=== PATIENT | male | born 1970 | race Caucasian/White ===

== ENCOUNTER 2018-01-15 14:45 | Observation (INO) ==
[2018-01-15] MEDS ORDERED: Isovue-370 500 ML INFUS..BTL IV ONE ×2 (15:09→15:11)
[2018-01-15] MEDS ORDERED: Ondansetron 4 MG/2 ML VIAL IVP ONE (15:12)
[2018-01-15] MEDS ORDERED: *HR* HYDROmorphone (PF) 1 MG/ML SYRINGE IVP ONE (15:12)
[2018-01-15] MEDS ORDERED: Tdap (Boostrix) Vaccine 0.5 ML SYRINGE IM ONE (15:16)
--- NOTE | 2018-01-15 15:21 | Emergency Department Note ---
Disposition Clinical Impression: Syncope and collapse, Laceration Disposition: Admitted As Inpatient Condition: Good Reasons to Return/Additional Instructions: Sutures will need to be removed in approximately 4-5 days. Referrals: NONE,PCP [Primary Care Provider] - Forms: ED Satisfaction Letter Fall HPI - General Chief Complaint: ED Fall Stated Complaint: syncope, abd pain, fall Time Seen by Provider: 01/15/18 14:49 Source: patient, EMS Mode of arrival: ambulatory Limitations: no limitations Nursing Notes Reviewed: Yes Vital Signs Reviewed: Yes - History of Present Illness HPI Narrative: Patient presents as a syncope from EMS. Patient found in the barn. Unknown and unwitnessed fall and syncope. Unknown down time. Patient has no medical problems and does not take medications. Patient had repetitive words upon EMSs initial arrival. Patient is awake alert and oriented to person and place but not time. Patient does not know what year it is. Patient has pain in the right arm as well as the right leg. Pain with any sort of movement. Pain to palpation of the shoulder elbow wrist and hyperthenar eminence. The patient's hip pain is worse with active and passive range of motion. No specific tenderness. Patient has abdominal pain to the right side of the abdomen. Patient does not remember any prior events. Patient will undergo a trauma evaluation as well as evaluation for syncope. - Related Data Home Medications Medication Instructions Recorded Confirmed No Known Home Drugs 01/15/18 01/15/18 Allergies Allergy/AdvReac Type Severity Reaction Status Date / Time No Known Allergies Allergy Verified 01/15/18 17:37 Review of Systems: Review of systems positive for syncope, laceration to the head, right arm and leg pain.. Right abdominal pain. Confusion. Negative for: Nausea, vomiting, diarrhea, chest pain and shortness of breath All systems ED: reviewed and negative except as stated. Review of Systems: As Per HPI Fall PMH - Past Medical History Medical history: Reports: no medical history Psychiatric history: Reports: no psych history - Social History Smoking Status: Never smoker Alcohol use: Reports: none Drug use: Reports: none Physical Exam Trauma assessment: GCS: 15; [id number]; moves all 4 extremities C-collar placed in the department Patient answering questions without respiratory difficulty; Breath sounds bilaterally with equal and symmetric chest rise. No obvious chest deformities or crepitus No obvious abdominal trauma. Abdomen is soft mild tenderness to palpation of the right. Pelvis is stable. No blood at the meatus, no scrotal hematoma and is rectal bleeding. No obvious trauma to the anterior lower extremities. Skin is warm and perfused. Radial pulses +2 equal bilaterally. EKG: No STEMI Secondary exam: Eyes: anicteric sclerae, moist conjunctivae; PERRL HENT: Atraumatic; oropharynx clear with moist mucous membranes and no mucosal ulcerations Neck: Normal inspection; Trachea midline; FROM, supple Lungs: CTA, with normal respiratory effort and no intercostal retractions CV: RRR, no MRGs Abdomen: Soft, mild tenderness to the right side without significant guarding or rebound. Extremities: Pain to the right shoulder elbow wrist and hyperthenar eminence on the right. Patient with right hip and knee pain. Skin: Multiple old abrasions to the lower legs. Patient has a 2 cm laceration to the top of his head. Bleeding controlled. Normal temperature; no rash, ulcers or lesions Neuro: alert and oriented to person, place but not time. Patient's cranial nerves are intact. Pupils are equal and reactive. The patient cannot move the right arm and leg secondary to pain. - General Limitations: no limitations General appearance: alert Course - Reevaluation(s) Reevaluation #1: CT was called and notified of trauma evaluation. No need for laboratory tests. Patient needs a stat head CT. 1515 Reevaluation #2: Patient underwent trauma evaluation with head, C/T/L-spine, chest abdominal and pelvis CT scan which show a age indeterminate likely chronic T5 fracture. X- rays are negative for acute injury of the extremities. The patient has been reevaluated with family at bedside. His total down time was proximally 20 minutes. Nobody saw the actual episode. The patient is at baseline per family. He did undergo a traumatic accident previously. 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 Patient's mental status is now at baseline. Patient will be admitted for further evaluation of syncope. - Consultations Consultation #1: Discussed with hospitalist. Patient accepted for admission. Vital Signs Temperature 98.3 F 01/15/18 14:48 Pulse Rate 91 01/15/18 14:48 Respiratory Rate 18 01/15/18 14:48 Blood Pressure 140/91 01/15/18 14:48 O2 Sat by Pulse Oximetry 99 01/15/18 14:48 Temperature 98.3 F 01/15/18 14:48 Pulse Rate 75 01/15/18 17:45 Respiratory Rate 16 01/15/18 17:45 Blood Pressure 115/70 01/15/18 17:45 O2 Sat by Pulse Oximetry 98 01/15/18 17:45 Oxygen Delivery Oxygen Delivery Room Air Procedures - Laceration Laceration 1 Site: scalp Size (cm): 2.5 Description: linear Depth: simple, single layer Local Anesthetic: lidocaine 1% Pre-repair: wound explored, irrigated extensively, deep structures intact Skin layer closed with: nylon Size: 5-0 Number of sutures/saman: 3 Technique: simple, interrupted Fall - Medical Records Medical records reviewed: Yes I reviewed the patient's medical records. - Lab Data Lab results reviewed: Yes I reviewed the patient's lab results. Result diagrams: 01/15/18 15:07 01/15/18 15:07 Lab Results 01/15/18 01/15/18 01/15/18 Range/Units 15:07 15:07 15:17 WBC 9.5 (4.3-11.1) K/mcL RBC 4.38 (4.19-5.50) M/mcL Hgb 12.6 L (12.9-16.9) g/dL Hct 37.0 L (37.5-50.1) % MCV 84.5 (83.0-100.0) fL MCH 28.8 (28.0-33.3) pg MCHC 34.1 (31.6-35.5) g/dL RDW 13.7 (11.5-14.5) % Plt Count 290 (140-400) K/mcL MPV 9.0 L (9.4-12.4) fL Immature Gran % 1.1 (0-4) % Seg Neutrophils % 83.8 % Lymphocytes % 7.0 % Monocytes % 6.7 % Eosinophils % 1.1 % Basophils % 0.3 % Neutrophils # 8.0 (1.6-8.9) K/mcL Lymphocytes # 0.7 (0.6-4.6) K/mcL Monocytes # 0.6 (0.0-1.3) K/mcL Eosinophils # 0.1 (0.0-0.6) K/mcL Basophils # 0.0 (0.0-0.2) K/mcL Sodium 137 (136-145) mEq/L Potassium 4.0 (3.5-5.1) mEq/L Chloride 108 H (98-107) mEq/L Carbon Dioxide 22 L (23-29) mEq/L BUN 22 H (6-20) mg/dL Creatinine 0.85 (0.70-1.30) mg/dL Est GFR ( Amer) > 60 (> 60) Est GFR (Non-Af Amer) > 60 (> 60) BUN/Creatinine Ratio 26 (6-26) Glucose 103 (70-105) mg/dL Calculated Osmolality 288 (280-300) Calcium 8.8 (8.6-10.3) mg/dL Creatine Kinase (30-223) Units/L Troponin I < 0.03 (< 0.04) ng/mL Urine Color (Yellow) Urine Clarity (Clear) Urine pH (5.0-8.0) pH Units Ur Specific [place] (1.010-1.025) Urine Protein (Neg-Trace) mg/dL Urine Glucose (UA) (Normal) mg/dL Urine Ketones (Negative) mg/dL Urine Blood (Negative) Urine Nitrite (Negative) Urine Bilirubin (Negative) Urine Urobilinogen (Normal) mg/dL Ur Leukocyte Esterase (Negative) Urine Microscopic RBC (0-3) per hpf Urine Microscopic WBC (0-3) per hpf Ur Squamous Epith Cells (None-Few) per lpf Urine Bacteria (None-Few) per hpf Hyaline Casts (None-Few) per lpf Urine Sperm Urine Opiates Screen (Jtowcy=467) ng/mL Ur Barbiturates Screen (Rmfnqf=097) ng/mL Ur Phencyclidine Scrn (Cutoff=25) ng/mL Ur Amphetamines Screen (Lrytog=8515) ng/mL U Benzodiazepines Scrn (Ylwdgk=825) ng/mL Urine Cocaine Screen (Cutoff= 300) ng/mL U Marijuana (THC) Screen (Cutoff = 50) ng/mL Ethyl Alcohol < 10 (Less than 10) mg/dL Blood Type Antibody Screen 01/15/18 01/15/18 01/15/18 Range/Units 15:18 15:28 15:47 WBC (4.3-11.1) K/mcL RBC (4.19-5.50) M/mcL Hgb (12.9-16.9) g/dL Hct (37.5-50.1) % MCV (83.0-100.0) fL MCH (28.0-33.3) pg MCHC (31.6-35.5) g/dL RDW (11.5-14.5) % Plt Count (140-400) K/mcL MPV (9.4-12.4) fL Immature Gran % (0-4) % Seg Neutrophils % % Lymphocytes % % Monocytes % % Eosinophils % % Basophils % % Neutrophils # (1.6-8.9) K/mcL Lymphocytes # (0.6-4.6) K/mcL Monocytes # (0.0-1.3) K/mcL Eosinophils # (0.0-0.6) K/mcL Basophils # (0.0-0.2) K/mcL Sodium (136-145) mEq/L Potassium (3.5-5.1) mEq/L Chloride (98-107) mEq/L Carbon Dioxide (23-29) mEq/L BUN (6-20) mg/dL Creatinine (0.70-1.30) mg/dL Est GFR ( Amer) (> 60) Est GFR (Non-Af Amer) (> 60) BUN/Creatinine Ratio (6-26) Glucose (70-105) mg/dL Calculated Osmolality (280-300) Calcium (8.6-10.3) mg/dL Creatine Kinase 67 (30-223) Units/L Troponin I (< 0.04) ng/mL Urine Color Yellow (Yellow) Urine Clarity Cloudy A (Clear) Urine pH 5.5 (5.0-8.0) pH Units Ur Specific [place] 1.029 H (1.010-1.025) Urine Protein 100 H (Neg-Trace) mg/dL Urine Glucose (UA) Normal (Normal) mg/dL Urine Ketones Negative (Negative) mg/dL Urine Blood Trace H (Negative) Urine Nitrite Negative (Negative) Urine Bilirubin Negative (Negative) Urine Urobilinogen Normal (Normal) mg/dL Ur Leukocyte Esterase Negative (Negative) Urine Microscopic RBC 0-3 (0-3) per hpf Urine Microscopic WBC 5-15 H (0-3) per hpf Ur Squamous Epith Cells Many H (None-Few) per lpf Urine Bacteria None Seen (None-Few) per hpf Hyaline Casts None Seen (None-Few) per lpf Urine Sperm Present Urine Opiates Screen (Jqwday=413) ng/mL Ur Barbiturates Screen (Igrlng=686) ng/mL Ur Phencyclidine Scrn (Cutoff=25) ng/mL Ur Amphetamines Screen (Ayvuje=3608) ng/mL U Benzodiazepines Scrn (Dvqpwu=194) ng/mL Urine Cocaine Screen (Cutoff= 300) ng/mL U Marijuana (THC) Screen (Cutoff = 50) ng/mL Ethyl Alcohol (Less than 10) mg/dL Blood Type O POSITIVE Antibody Screen NEGATIVE 01/15/18 Range/Units 15:47 WBC (4.3-11.1) K/mcL RBC (4.19-5.50) M/mcL Hgb (12.9-16.9) g/dL Hct (37.5-50.1) % MCV (83.0-100.0) fL MCH (28.0-33.3) pg MCHC (31.6-35.5) g/dL RDW (11.5-14.5) % Plt Count (140-400) K/mcL MPV (9.4-12.4) fL Immature Gran % (0-4) % Seg Neutrophils % % Lymphocytes % % Monocytes % % Eosinophils % % Basophils % % Neutrophils # (1.6-8.9) K/mcL Lymphocytes # (0.6-4.6) K/mcL Monocytes # (0.0-1.3) K/mcL Eosinophils # (0.0-0.6) K/mcL Basophils # (0.0-0.2) K/mcL Sodium (136-145) mEq/L Potassium (3.5-5.1) mEq/L Chloride (98-107) mEq/L Carbon Dioxide (23-29) mEq/L BUN (6-20) mg/dL Creatinine (0.70-1.30) mg/dL Est GFR ( Amer) (> 60) Est GFR (Non-Af Amer) (> 60) BUN/Creatinine Ratio (6-26) Glucose (70-105) mg/dL Calculated Osmolality (280-300) Calcium (8.6-10.3) mg/dL Creatine Kinase (30-223) Units/L Troponin I (< 0.04) ng/mL Urine Color (Yellow) Urine Clarity (Clear) Urine pH (5.0-8.0) pH Units Ur Specific [place] (1.010-1.025) Urine Protein (Neg-Trace) mg/dL Urine Glucose (UA) (Normal) mg/dL Urine Ketones (Negative) mg/dL Urine Blood (Negative) Urine Nitrite (Negative) Urine Bilirubin (Negative) Urine Urobilinogen (Normal) mg/dL Ur Leukocyte Esterase (Negative) Urine Microscopic RBC (0-3) per hpf Urine Microscopic WBC (0-3) per hpf Ur Squamous Epith Cells (None-Few) per lpf Urine Bacteria (None-Few) per hpf Hyaline Casts (None-Few) per lpf Urine Sperm Urine Opiates Screen Negative (Nstuhp=845) ng/mL Ur Barbiturates Screen Negative (Imhzgn=998) ng/mL Ur Phencyclidine Scrn Negative (Cutoff=25) ng/mL Ur Amphetamines Screen Negative (Zbzivq=3524) ng/mL U Benzodiazepines Scrn Negative (Vehvap=130) ng/mL Urine Cocaine Screen Negative (Cutoff= 300) ng/mL U Marijuana (THC) Screen Negative (Cutoff = 50) ng/mL Ethyl Alcohol (Less than 10) mg/dL Blood Type Antibody Screen - Radiology Data Radiology results reviewed: Yes I reviewed the patient's radiology results. - EKG Data EKG attestation: Yes I reviewed and interpreted this EKG. EKG results narrative: EKG shows sinus rhythm with ventricular rate of 89. VA interval 196. QTC 409. Patient has no significant elevations or depressions. No previous EKG for comparison.
[2018-01-15 16:01] LABS: Basophils % 0.3 %; Eosinophils # 0.1 K/mcL (0.0-0.6); Eosinophils % 1.1 %; Hemoglobin 12.6 g/dL (12.9-16.9); Immature Granulocytes % 1.1 % (0-4); Lymphocytes # 0.7 K/mcL (0.6-4.6); Mean Corpuscular HGB Conc 34.1 g/dL (31.6-35.5); Mean Corpuscular Hemoglobin 28.8 pg (28.0-33.3); Mean Corpuscular Volume 84.5 fL (83.0-100.0); Monocytes # 0.6 K/mcL (0.0-1.3); Monocytes % 6.7 %; Platelet Count 290 K/mcL (140-400); Red Blood Count 4.38 M/mcL (4.19-5.50); Red Cell Distribution Width 13.7 % (11.5-14.5); Segmented Neutrophils % 83.8 %
[2018-01-15 16:06] LABS: Bilirubin,Urine Negative (Negative); Blood,Urine Trace (Negative); Clarity,Urine Cloudy (Clear); Color,Urine Yellow (Yellow); Glucose,Urine (UA) Normal (Normal); Ketones,Urine Negative (Negative); Leukocyte Esterase,Urine Negative (Negative); Nitrite,Urine Negative (Negative); PH,Urine 5.5 pH Units (5.0-8.0); Protein,Urine 100 mg/dL (Neg-Trace); Specific Gravity,Urine 1.029 (1.010-1.025); Urobilinogen,Urine Normal (Normal)
[2018-01-15 16:07] LABS: Bacteria,Urine None Seen per hpf (None-Few); Hyaline Casts,Urine None Seen per lpf (None-Few); RBC,Urine 0-3 per hpf (0-3); Squamous Epithelial Cell,Urine Many per lpf (None-Few)
[2018-01-15 16:20] LABS: Sperm,Urine Present
[2018-01-15 16:21] LABS: BUN/Creatinine Ratio 26 (6-26); Blood Urea Nitrogen 22 mg/dL (6-20); Calcium 8.8 mg/dL (8.6-10.3); Carbon Dioxide 22 mEq/L (23-29); Chloride 108 mEq/L (98-107); Ethanol < 10 mg/dL (Less than 10); Glucose 103 mg/dL (70-105); Osmolality,Calculated 288 (280-300); Sodium 137 mEq/L (136-145); eGFR For African Americans > 60 (> 60); eGFR For Non-African Americans > 60 (> 60)
[2018-01-15 16:31] LABS: Amphetamine Screen,Urine Negative ng/mL (Cutoff=1000); Barbiturate Screen,Urine Negative ng/mL (Cutoff=200); Benzodiazepines Screen,Urine Negative ng/mL (Cutoff=200); Cannabinoid Screen,Urine Negative ng/mL (Cutoff = 50); Cocaine Screen,Urine Negative ng/mL (Cutoff= 300); Opiate Screen,Urine Negative ng/mL (Cutoff=300); Phencyclidine Screen,Urine Negative ng/mL (Cutoff=25)
[2018-01-15] MEDS ORDERED: Lidocaine/EPI 1:100k 1% 20 ML VIAL INFILT ONE (17:46)
[2018-01-15] MEDS ORDERED: Lidocaine 1% 20 ML MDV INFILT ONE (17:51)
--- NOTE | 2018-01-15 18:51 | Emergency Department Note ---
Disposition Clinical Impression: Syncope and collapse, Laceration Disposition: Admitted As Inpatient Condition: Fair Reasons to Return/Additional Instructions: Sutures will need to be removed in approximately 4-5 days. Referrals: NONE,PCP [Primary Care Provider] - Forms: ED Satisfaction Letter General Adult HPI - General Chief complaint: ED Fall Stated complaint: syncope, abd pain, fall Time Seen by Provider: 01/15/18 14:49 Source: patient, EMS Mode of arrival: ambulatory Limitations: no limitations Nursing Notes Reviewed: Yes Vital Signs Reviewed: Yes - History of Present Illness Pain Scale: 5 - Related Data Home Medications Medication Instructions Recorded Confirmed No Known Home Drugs 01/15/18 01/15/18 Allergies Allergy/AdvReac Type Severity Reaction Status Date / Time No Known Allergies Allergy Verified 01/15/18 17:37 Past Medical History - Past Medical History Medical history: Reports: no medical history Psychiatric history: Reports: no psych history - Social History Smoking Status: Never smoker Smokeless Tobacco Status: Yes Alcohol use: Reports: none Drug use: Reports: none Physical Exam - General Limitations: no limitations General appearance: alert Course Vital Signs Temperature 98.3 F 01/15/18 14:48 Pulse Rate 91 01/15/18 14:48 Respiratory Rate 18 01/15/18 14:48 Blood Pressure 140/91 01/15/18 14:48 O2 Sat by Pulse Oximetry 99 01/15/18 14:48 Temperature 98.3 F 01/15/18 14:48 Pulse Rate 75 01/15/18 17:45 Respiratory Rate 16 01/15/18 17:45 Blood Pressure 115/70 01/15/18 17:45 O2 Sat by Pulse Oximetry 98 01/15/18 17:45 Oxygen Delivery Oxygen Delivery Room Air Medical Decision Making - Lab Data Result diagrams: 01/15/18 15:07 01/15/18 15:07 Lab Results 01/15/18 01/15/18 01/15/18 Range/Units 15:07 15:07 15:17 WBC 9.5 (4.3-11.1) K/mcL RBC 4.38 (4.19-5.50) M/mcL Hgb 12.6 L (12.9-16.9) g/dL Hct 37.0 L (37.5-50.1) % MCV 84.5 (83.0-100.0) fL MCH 28.8 (28.0-33.3) pg MCHC 34.1 (31.6-35.5) g/dL RDW 13.7 (11.5-14.5) % Plt Count 290 (140-400) K/mcL MPV 9.0 L (9.4-12.4) fL Immature Gran % 1.1 (0-4) % Seg Neutrophils % 83.8 % Lymphocytes % 7.0 % Monocytes % 6.7 % Eosinophils % 1.1 % Basophils % 0.3 % Neutrophils # 8.0 (1.6-8.9) K/mcL Lymphocytes # 0.7 (0.6-4.6) K/mcL Monocytes # 0.6 (0.0-1.3) K/mcL Eosinophils # 0.1 (0.0-0.6) K/mcL Basophils # 0.0 (0.0-0.2) K/mcL Sodium 137 (136-145) mEq/L Potassium 4.0 (3.5-5.1) mEq/L Chloride 108 H (98-107) mEq/L Carbon Dioxide 22 L (23-29) mEq/L BUN 22 H (6-20) mg/dL Creatinine 0.85 (0.70-1.30) mg/dL Est GFR ( Amer) > 60 (> 60) Est GFR (Non-Af Amer) > 60 (> 60) BUN/Creatinine Ratio 26 (6-26) Glucose 103 (70-105) mg/dL Calculated Osmolality 288 (280-300) Calcium 8.8 (8.6-10.3) mg/dL Creatine Kinase (30-223) Units/L Troponin I < 0.03 (< 0.04) ng/mL Urine Color (Yellow) Urine Clarity (Clear) Urine pH (5.0-8.0) pH Units Ur Specific [place] (1.010-1.025) Urine Protein (Neg-Trace) mg/dL Urine Glucose (UA) (Normal) mg/dL Urine Ketones (Negative) mg/dL Urine Blood (Negative) Urine Nitrite (Negative) Urine Bilirubin (Negative) Urine Urobilinogen (Normal) mg/dL Ur Leukocyte Esterase (Negative) Urine Microscopic RBC (0-3) per hpf Urine Microscopic WBC (0-3) per hpf Ur Squamous Epith Cells (None-Few) per lpf Urine Bacteria (None-Few) per hpf Hyaline Casts (None-Few) per lpf Urine Sperm Urine Opiates Screen (Orvcfk=104) ng/mL Ur Barbiturates Screen (Hvazby=274) ng/mL Ur Phencyclidine Scrn (Cutoff=25) ng/mL Ur Amphetamines Screen (Wrcuwl=4477) ng/mL U Benzodiazepines Scrn (Hqszyb=071) ng/mL Urine Cocaine Screen (Cutoff= 300) ng/mL U Marijuana (THC) Screen (Cutoff = 50) ng/mL Ethyl Alcohol < 10 (Less than 10) mg/dL Blood Type Antibody Screen 01/15/18 01/15/18 01/15/18 Range/Units 15:18 15:28 15:47 WBC (4.3-11.1) K/mcL RBC (4.19-5.50) M/mcL Hgb (12.9-16.9) g/dL Hct (37.5-50.1) % MCV (83.0-100.0) fL MCH (28.0-33.3) pg MCHC (31.6-35.5) g/dL RDW (11.5-14.5) % Plt Count (140-400) K/mcL MPV (9.4-12.4) fL Immature Gran % (0-4) % Seg Neutrophils % % Lymphocytes % % Monocytes % % Eosinophils % % Basophils % % Neutrophils # (1.6-8.9) K/mcL Lymphocytes # (0.6-4.6) K/mcL Monocytes # (0.0-1.3) K/mcL Eosinophils # (0.0-0.6) K/mcL Basophils # (0.0-0.2) K/mcL Sodium (136-145) mEq/L Potassium (3.5-5.1) mEq/L Chloride (98-107) mEq/L Carbon Dioxide (23-29) mEq/L BUN (6-20) mg/dL Creatinine (0.70-1.30) mg/dL Est GFR ( Amer) (> 60) Est GFR (Non-Af Amer) (> 60) BUN/Creatinine Ratio (6-26) Glucose (70-105) mg/dL Calculated Osmolality (280-300) Calcium (8.6-10.3) mg/dL Creatine Kinase 67 (30-223) Units/L Troponin I (< 0.04) ng/mL Urine Color Yellow (Yellow) Urine Clarity Cloudy A (Clear) Urine pH 5.5 (5.0-8.0) pH Units Ur Specific [place] 1.029 H (1.010-1.025) Urine Protein 100 H (Neg-Trace) mg/dL Urine Glucose (UA) Normal (Normal) mg/dL Urine Ketones Negative (Negative) mg/dL Urine Blood Trace H (Negative) Urine Nitrite Negative (Negative) Urine Bilirubin Negative (Negative) Urine Urobilinogen Normal (Normal) mg/dL Ur Leukocyte Esterase Negative (Negative) Urine Microscopic RBC 0-3 (0-3) per hpf Urine Microscopic WBC 5-15 H (0-3) per hpf Ur Squamous Epith Cells Many H (None-Few) per lpf Urine Bacteria None Seen (None-Few) per hpf Hyaline Casts None Seen (None-Few) per lpf Urine Sperm Present Urine Opiates Screen (Wnpqfs=952) ng/mL Ur Barbiturates Screen (Smfdeb=321) ng/mL Ur Phencyclidine Scrn (Cutoff=25) ng/mL Ur Amphetamines Screen (Cbjoxj=6122) ng/mL U Benzodiazepines Scrn (Cudzuw=530) ng/mL Urine Cocaine Screen (Cutoff= 300) ng/mL U Marijuana (THC) Screen (Cutoff = 50) ng/mL Ethyl Alcohol (Less than 10) mg/dL Blood Type O POSITIVE Antibody Screen NEGATIVE 01/15/18 Range/Units 15:47 WBC (4.3-11.1) K/mcL RBC (4.19-5.50) M/mcL Hgb (12.9-16.9) g/dL Hct (37.5-50.1) % MCV (83.0-100.0) fL MCH (28.0-33.3) pg MCHC (31.6-35.5) g/dL RDW (11.5-14.5) % Plt Count (140-400) K/mcL MPV (9.4-12.4) fL Immature Gran % (0-4) % Seg Neutrophils % % Lymphocytes % % Monocytes % % Eosinophils % % Basophils % % Neutrophils # (1.6-8.9) K/mcL Lymphocytes # (0.6-4.6) K/mcL Monocytes # (0.0-1.3) K/mcL Eosinophils # (0.0-0.6) K/mcL Basophils # (0.0-0.2) K/mcL Sodium (136-145) mEq/L Potassium (3.5-5.1) mEq/L Chloride (98-107) mEq/L Carbon Dioxide (23-29) mEq/L BUN (6-20) mg/dL Creatinine (0.70-1.30) mg/dL Est GFR ( Amer) (> 60) Est GFR (Non-Af Amer) (> 60) BUN/Creatinine Ratio (6-26) Glucose (70-105) mg/dL Calculated Osmolality (280-300) Calcium (8.6-10.3) mg/dL Creatine Kinase (30-223) Units/L Troponin I (< 0.04) ng/mL Urine Color (Yellow) Urine Clarity (Clear) Urine pH (5.0-8.0) pH Units Ur Specific [place] (1.010-1.025) Urine Protein (Neg-Trace) mg/dL Urine Glucose (UA) (Normal) mg/dL Urine Ketones (Negative) mg/dL Urine Blood (Negative) Urine Nitrite (Negative) Urine Bilirubin (Negative) Urine Urobilinogen (Normal) mg/dL Ur Leukocyte Esterase (Negative) Urine Microscopic RBC (0-3) per hpf Urine Microscopic WBC (0-3) per hpf Ur Squamous Epith Cells (None-Few) per lpf Urine Bacteria (None-Few) per hpf Hyaline Casts (None-Few) per lpf Urine Sperm Urine Opiates Screen Negative (Hzispy=266) ng/mL Ur Barbiturates Screen Negative (Dudtub=261) ng/mL Ur Phencyclidine Scrn Negative (Cutoff=25) ng/mL Ur Amphetamines Screen Negative (Bxyvun=9600) ng/mL U Benzodiazepines Scrn Negative (Elevpp=799) ng/mL Urine Cocaine Screen Negative (Cutoff= 300) ng/mL U Marijuana (THC) Screen Negative (Cutoff = 50) ng/mL Ethyl Alcohol (Less than 10) mg/dL Blood Type Antibody Screen Attestation Statement - Attestation Attestation: I, Cisco Gallagher, examined this patient and my medical decision-making was reviewed with the [employer]OLLER/PA/Advanced Practice Nurse/Resident Physician. I agree with the documented findings, disposition and treatment plan as described except to the extent set forth below. 47-year-old male presents emergency Department with concerns of syncopal event and had trauma. Patient states he was working in the yard when he suddenly became lightheaded and lost consciousness. It is unknown how long he was unconscious. Upon arrival patient had significant pain to his right shoulder. He denies fever, chills, nausea, vomiting, chest pain, shortness of breath or palpitations. He does state that this is occurred to him once in the past. He felt like he had syncopized because of becoming overheated. Patient denies taking medications and states he is not taking [id number] supplements. Patient denies illicit drug use. Patient had multiple CT scans of his head, neck, thoracic and lumbar spine without evidence of intracranial hemorrhage. Patient did have loss of vertebral height of T5 although it is unclear whether this was an acute traumatic injury. Multiple x-rays of the extremities were negative for fracture. Patient is able to move his right upper extremity without difficulty on my reevaluation. Laboratory evaluation was largely within normal limits. Patient will be admitted for further evaluation of his syncope.
[2018-01-15] MEDS ORDERED: *HR* HYDROcodone/Acet 5/325 mg TABLET PO PRN (20:25)
[2018-01-15] MEDS ORDERED: *HR* OxyCODONE Immed Rel 5 MG TABLET PO PRN (20:25)
[2018-01-15] MEDS ORDERED: Acetaminophen 325 MG TABLET PO PRN (20:25)
[2018-01-15] MEDS ORDERED: Naloxone 0.4 MG/ML INJ IVP PRN (20:25)
--- NOTE | 2018-01-15 20:38 | Internal Med History&Physical ---
<NithinAbdirahman carlos - Last Filed: 01/15/18 21:59> Date of Encounter: 01/15/18 Time of Encounter: 20:35 Internal Medicine - H&P: HPI Chief complaint: Syncope Admitted From: Emergency Dept Plans for Post Hospital Care: Home History of present illness: Mr. Li is a 47 year old male with no significant past medical history, and on no home medications. Patient was outside this afternoon mellowing and weeding. He went to go to the garage and then had a syncopal episode where he hit his head. She does not know how long he was passed out for, but guessed approximately 25 minutes or so. He was found by his mother and his mother's boyfriend. Patient denies having any tongue biting or bowel/bladder incontinence. He did have severe pain in his low back and in the back part of his right arm. During this episode, he was outside for approximately 2.5 hours before he had a syncopal episode. He does not remember drinking any water today , and cannot remember what he ate today either. He states that prior to this episode, his sister was yelling at him this morning. He states that this did happen to them once before back in 2005 where he passed out at work. He did go to the hospital at that time and was told that the cause was likely secondary to dehydration. Patient admits to epigastric abdominal pain, low back pain since fall. He denies bowel/bladder incontinence. He denies nausea, vomiting, diarrhea, fever, chills, chest pain, shortness of breath. He denies any alcohol use currently. He states that he completely quit drinking 2 months ago , and before that drank a 6 pack of beer per week. He used to chew tobacco but quit this 2 months ago Past Med Surg Social Fam HX - Past Medical History Medical history: no medical history Psychiatric history: no psych history - Past Surgical History Surgical History: no surgical history - Social History Smoking Status: Never smoker Smokeless Tobacco Status: Yes Alcohol use: none Drug use: none Internal Medicine - H&P: Meds Acetaminophen [Tylenol] 650 mg PO Q6HR PRN tablet 01/16/18 [Rx] 3 Allergy/AdvReac Type Severity Reaction Status Date / Time No Known Allergies Allergy Verified 01/15/18 17:37 All Systems PM: A 10-system review of systems was performed and is negative for pertinent findings except as documented above in the HPI. - Constitutional Constitutional: as per HPI - EENT Eyes: as per HPI Ears: as per HPI Nose, mouth and throat: as per HPI - Breasts Breasts: as per HPI - Cardiovascular Cardiovascular ROS IM: as per HPI - Respiratory Respiratory: as per HPI - Gastrointestinal Gastrointestinal: as per HPI - Genitourinary Genitourinary ROS male: as per HPI - Musculoskeletal Musculoskeletal ROS IM: as per HPI - Integumentary Integumentary IM: as per HPI - Neurological Neurological ROS: as per HPI - Psychiatric Psychiatric: as per HPI - Endocrine Endocrine IM: as per HPI - Hematologic/Lymphatic Hematologic/Lymphatic: as per HPI - Allergic/Immunologic Allergic/Immunologic: as per HPI - Constitutional Vitals: Temp Pulse Resp BP Pulse Ox 98.3 F 79 16 119/79 98 01/15/18 14:48 01/15/18 18:53 01/15/18 18:53 01/15/18 18:53 01/15/18 18:53 General appearance: Present: A&O X 3, pleasant, no acute distress, answers questions appropriately - Head Additional comments: About 6 cm laceration present at the top of the head with [address] - Eye Eye exam: Present: PERRL Pupils: Present: PERRL - Neck Neck exam general surgery: Present: supple, trachea midline - Respiratory Respiratory exam: Present: CTAB - Cardiovascular Cardiovascular exam: Present: RRR, +S1, +S3 - GI/Abdominal GI/Abdominal exam: Present: distended, firm, tenderness (Tenderness present in the middle/epigastric area.) - Extremities Exam Extremities exam: Absent: cyanotic, pedal edema - Neurological Exam Neurological exam: Present: alert, oriented X3, strengths equal and symetr throughout. Absent: pronater drift, facial droop, speech deficit - Psychiatric Psychiatric exam: Present: anxious Internal Med - H&P Results - Labs CBC & Chem 7: 01/15/18 15:07 01/15/18 15:07 - Assessment and plan (1) Syncope and collapse Status: Acute Assessment and plan: Unwitnessed syncopal episode this afternoon after being outside, patient was found in the garage by his mother. Does not know how long he was passed out. Head CT showed no acute abnormality. Cervical spine CT, wrist x-ray, elbow x-ray, right-hand x-ray, right knee x-ray , right shoulder x-ray, thoracic and lumbar spine CT showed no acute osseous abnormality or fracture. Chest CTA-no evidence of PE EKG showed sinus rhythm with no acute ischemic changes etiology unclear at this time. seizure activity unlikely. EKG unremarkable, will obtain further cardiac workup. Consider possible vasovagal, orthostatic hypotension. Plan: telemetry orthostatic vitals echocardiogram pending bilateral carotid duplex pending fall precautions consult to neuro and cardio-appreciate recs. (2) Laceration Status: Acute Assessment and plan: About 6 cm laceration present at the top of the head with [address] (3) DVT prophylaxis Status: Acute Assessment and plan: Heparin SQ - Time Spent With Patient Total time spent is greater than 50% in coordination of care (as documented) at patient's floor/unit and/or counseling patient: <Brigitte Gutierrez - Last Filed: 01/25/18 02:01> Date of Encounter: 01/15/18 Internal Medicine - H&P: HPI History of present illness: Mr. Li is a 47 year old male All Systems PM: A 10-system review of systems was performed and is negative for pertinent findings except as documented above in the HPI. - Constitutional Vitals: Temp Pulse Resp BP Pulse Ox 97.7 F 73 16 117/75 100 01/16/18 07:14 01/16/18 07:14 01/16/18 07:14 01/16/18 07:14 01/16/18 07:14 Internal Med - H&P Results - Labs CBC & Chem 7: 01/16/18 03:27 01/16/18 03:27 Labs: Short CBC 01/16/18 Range/Units 03:27 WBC 7.6 (4.3-11.1) K/mcL Hgb 12.3 L (12.9-16.9) g/dL Hct 36.8 L (37.5-50.1) % Plt Count 289 (140-400) K/mcL Neutrophils # 5.4 (1.6-8.9) K/mcL BMP 01/16/18 03:27 Sodium 137 Potassium 3.8 Chloride 107 Carbon Dioxide 25 BUN 18 Creatinine 0.82 Glucose 124 H Calcium 8.7 Cardiac Enzymes 01/15/18 01/16/18 Range/Units 20:45 03:27 Troponin I < 0.03 < 0.03 (< 0.04) ng/mL - Attending Attestation I personally and independently interviewed and examined the patient , and I reviewed the patient's medical records. I am in agreement with the assessment and proposed treatment plan. I discussed my findings and recommendation with the patient and answer all questions. The patient's medical records were edited to accurately reflect this encounter. - Assessment and plan (1) Syncope and collapse Status: Acute (2) Laceration Status: Acute (3) DVT prophylaxis Status: Acute - Time Spent With Patient Total time spent is greater than 50% in coordination of care (as documented) at patient's floor/unit and/or counseling patient:
[2018-01-15] MEDS: 0.9 % Sodium Chloride 1,000 ML IVC SCH (23:11)
[2018-01-16 04:17] LABS: Basophils % 0.4 %; Eosinophils # 0.2 K/mcL (0.0-0.6); Eosinophils % 2.5 %; Hematocrit 36.8 % (37.5-50.1); Hemoglobin 12.3 g/dL (12.9-16.9); Immature Granulocytes % 0.3 % (0-4); Lymphocytes % 13.2 %; Mean Corpuscular HGB Conc 33.4 g/dL (31.6-35.5); Mean Corpuscular Hemoglobin 28.5 pg (28.0-33.3); Mean Corpuscular Volume 85.4 fL (83.0-100.0); Mean Platelet Volume 9.1 fL (9.4-12.4); Monocytes # 0.9 K/mcL (0.0-1.3); Monocytes % 12.5 %; Neutrophils # 5.4 K/mcL (1.6-8.9); Platelet Count 289 K/mcL (140-400); Red Blood Count 4.31 M/mcL (4.19-5.50); Red Cell Distribution Width 13.8 % (11.5-14.5); Segmented Neutrophils % 71.1 %
[2018-01-16 04:37] LABS: BUN/Creatinine Ratio 22 (6-26); Blood Urea Nitrogen 18 mg/dL (6-20); Calcium 8.7 mg/dL (8.6-10.3); Carbon Dioxide 25 mEq/L (23-29); Chloride 107 mEq/L (98-107); Glucose 124 mg/dL (70-105); Magnesium 2.2 mg/dL (1.6-2.6); Osmolality,Calculated 287 (280-300); Phosphorous 2.7 mg/dL (2.7-4.5); Potassium 3.8 mEq/L (3.5-5.1); Sodium 137 mEq/L (136-145); eGFR For African Americans > 60 (> 60); eGFR For Non-African Americans > 60 (> 60)
[2018-01-16] MEDS ORDERED: *HR* Heparin 5,000 UNIT/ML VIAL SQ SCH (06:00)
[2018-01-16] MEDS: 0.9 % Sodium Chloride 1,000 ML IVC SCH (11:55)
--- NOTE | 2018-01-16 13:36 | Discharge Summary ---
<Doug Murray - Last Filed: 01/16/18 13:33> - NOTES TO OUTPATIENT PROVIDER Notes to Outpatient Provider: The patient had an episode of syncope most likely due to volume depletion/dehydration. He had relatively normal labs and imaging. May require outpatient risk factor modifications but is otherwise okay. Orders not resulted at time of discharge: Pending orders 01/15/18 20:34 EV carotid duplex imaging BI Routine EV echocardiogram Routine Date of Encounter: 01/16/18 Time of Encounter: 09:20 - Discharge Diagnosis (1) Syncope and collapse Priority: Primary Status: Acute Assessment and Plan: Unwitnessed syncopal episode this afternoon after being outside, patient was found in the garage by his mother. Does not know how long he was passed out. Head CT showed no acute abnormality. Cervical spine CT, wrist x-ray, elbow x-ray, right-hand x-ray, right knee x-ray , right shoulder x-ray, thoracic and lumbar spine CT showed no acute osseous abnormality or fracture. Chest CTA-no evidence of PE EKG showed sinus rhythm with no acute ischemic changes etiology unclear at this time. seizure activity unlikely. EKG unremarkable, will obtain further cardiac workup. Consider possible vasovagal, orthostatic hypotension. Orthostatics Echocardiogram Bilateral carotid US (2) Laceration Priority: Secondary Status: Acute Assessment and Plan: About 6 cm laceration present at the top of the head with [address], will need removal in 7-10 days (3) Status post fall Priority: Secondary Status: Acute Assessment and Plan: Pain s/p fall, no evidence of fracture Can take tylenol and ibuprofen for pain as needed Hospital course: Mr. Li is a 47 year old male with no significant medical history who presented to the ED for acute syncopal episode following several hours of doing yard work. He said that he had walked into his garage, lost consciousness, and was found down by his family. He has had a similar episode in 2005, however at that time he was told that he had dehydration. In the ED, he had an EKG which was normal, and labs which were all within normal limits. He was admitted for syncope workup, which included an echocardiogram, b/l carotid ultrasound, and continuous cardiac monitoring which all resulted in normal findings. He did require 3 sutures in a laceration to the skull, which requires follow-up and removal in 7-10 days with primary care. For more detailed description of hospital course including workup results and plan at discharge, please see individual assessments. Discharge discussed with: patient, family, nurse - Time Spent with Patient Total time spent providing and/or coordinating discharge services: - Discharge Medications Home Medications: Acetaminophen [Tylenol] 650 mg PO Q6HR PRN tablet 01/16/18 [Rx] Allergies/Adverse Reactions: 3 Allergy/AdvReac Type Severity Reaction Status Date / Time No Known Allergies Allergy Verified 01/15/18 17:37 Date of admission: 01/15/18 19:01 Primary care physician: PCP NONE Discharging clinician: Doug Murray Anticipated date of discharge: 01/16/18 - Constitutional Vitals: Temp Pulse Resp BP Pulse Ox 97.8 F 75 20 117/69 97 01/16/18 11:08 01/16/18 11:08 01/16/18 11:08 01/16/18 11:08 01/16/18 11:08 General appearance: Present: A&O X 3, pleasant, no acute distress, answers questions appropriately - Patient Status Disposition: Home, Self-Care Condition: Good Functional capacity at discharge: independent ambulation Overall status at discharge: patient is back to baseline - Discharge Instructions Follow Up With: NONE,PCP [Primary Care Provider] - Additional Instructions: Follow-up with primary care in 7-10 days for suture removal Return to the ED for recurrent symptoms, chest pains, shortness of breath or loss of consciousness. Use ibuprofen or acetaminophen every 6 hours for pain related to fall - Diet and Activity Activity: increase activity as tolerated Diet: regular diet <Cullen Hidalgo H - Last Filed: 01/16/18 15:07> Orders not resulted at time of discharge: Pending orders 01/15/18 20:34 EV carotid duplex imaging BI Routine EV echocardiogram Routine Date of Encounter: 01/16/18 - Discharge Diagnosis (1) Syncope and collapse Status: Acute (2) Laceration Status: Acute (3) Status post fall Status: Acute Hospital course: Mr. Li is a 47 year old male - Time Spent with Patient Total time spent providing and/or coordinating discharge services: Date of admission: 01/15/18 19:01 Primary care physician: PCP NONE - Constitutional Vitals: Temp Pulse Resp BP Pulse Ox 97.8 F 75 20 117/69 97 01/16/18 11:08 01/16/18 11:08 01/16/18 11:08 01/16/18 11:08 01/16/18 11:08 - Attending Attestation Syncopal episode secondary to orthostatic hypotension due to dehydration Upon admission his blood pressure dropped from 128/86 on lying position down to 92/56 on the standing position Resolved with fluids Stable to be discharged Can follow-up echocardiogram with primary care physician Maintaining good hydration. Next Time spent on this discharge 40 minutes I examined this patient and my medical decision-making was reviewed with the Resident Physician. I agree with the documented findings, disposition and treatment plan as described except to the extent set forth below.
[2018-01-16 16:17] VITALS: BP 140/92
--- NOTE | 2018-01-16 20:24 | Electrocardiograph Report ---
[address] [place], [place] [address] Test Date: 2018-01-15 Pat Name: Cisco Li Department: 103 Room: 2NE24 Gender: M Dermatology Procedural Physician: BRITTON : 1970 Requested By: [id number] Order Number: [id number] Reading MD: Tate Rojas Measurements Intervals [place] Rate: 89 P: 28 OK: 196 QRS: -30 QRSD: 111 T: 55 QT: 362 QTc: 409 Interpretive Statements SINUS RHYTHM BORDERLINE LEFT AXIS DEVIATION Electronically Signed On 01-16-2018 20:22:59 EDT by Tate Rojas
== END 2018-01-16 17:33 | disposition home or self-care (01) ==
LOC: 2NENU 14:45 → EMEROO 14:45 → 2NENU 20:00
PROVIDERS: ADMIT Internal Medicine; ATTEND Internal Medicine Nephrology